=== PATIENT | male | born 1955 | race Hispanic/Latino ===

== ENCOUNTER 2018-11-07 12:09 | Outpatient (CLI) | payer MEDICARE, OTHER ==
[2018-11-07] MEDS ORDERED: ISOVUE-370 76%-LOCM 1 ML ONE (13:41)
--- NOTE | 2018-11-07 15:35 | CT ---
CT CHEST WITH IV CONTRAST 11/07/18 HISTORY: Cough, tobacco use, abnormal lung sounds. FINDINGS: No evidence of mediastinal, hilar or axillary mass or lymphadenopathy seen. There are vascular calci fications without evidence of thoracic aortic aneurysm or dissection. No pleural or pericardial effu sions are seen. No pneumothoraces, focal areas of consolidation, pulmonary nodules or masses are seen . There is scarring in the lung apices. There are mild degenerative changes in the spine. Upper abdom inal tomograms demonstrate fatty infiltration of the liver. IMPRESSION: No significant intrathoracic abnormalities are identified. POS: [facility]
== END 2018-11-07 12:10 | disposition home or self-care (01) ==
LOC: BICCT 12:09
PROVIDERS: ATTEND Family Medicine
DX: R05 Cough (principal); Z72.0 Tobacco use
CPT/HCPCS: 71260; Q9966

== ENCOUNTER 2018-11-27 13:25 | Outpatient (CLI) | payer MEDICARE, OTHER ==
--- NOTE | 2018-11-27 14:08 | RAD ---
3 views of the lumbar spine: 11/27/2018 COMPARISON: None HISTORY: Back pain and right lower extremity pain FINDINGS: Lateral neutral, flexion, and extension images are provided. There is disc space narrowing and degenerative endplate change at the L5-S1 level. There is atheroscl erotic calcification of the abdominal aorta. There is mild anterolisthesis on the neutral imaging at the L4-5 level measuring approximately 3-4 mm . Flexion imaging demonstrates anterolisthesis at L4-5 measuring in the 5 mm range in the anterolisthesis at L4-5 measures less than 2 mm on extension imaging. No acute fracture. IMPRESSION: Mild anterolisthesis of L4 on L5, most prominent upon flexion. Degenerative change at the lumbosacral junction with no acute osseous abnormality seen.
--- NOTE | 2018-11-27 15:03 | MRI ---
Lumbar spine MRI without contrast: 11/27/2018 COMPARISON: 04/03/2011 HISTORY: Back pain, right lower extremity radiculopathy with numbness and tingling of the right foot TECHNIQUE: Multiplanar multisequence MR imaging of the lumbar spine provided without contrast FINDINGS: The sagittal STIR imaging demonstrates no focal area of osseous marrow edema. There is diff use central canal stenosis on the basis of congenitally short pedicles, stable. On the basis of 5 lumbar type vertebral bodies, the conus medullaris terminates at the L1 level. T12-L1: Intervertebral disc height and signal intensity within normal limits with no significant cent ral canal or neural foraminal stenosis. L1-2: Mild bilateral facet hypertrophy. Intervertebral disc height and signal intensity within normal limits with no significant central canal or neural foraminal stenosis. L2-3: Intervertebral disc height and signal intensity within normal limits. No significant central ca nal or neural foraminal stenosis. Mild bilateral facet hypertrophy. L3-4: Mild disc bulge. No associated central canal stenosis. Mild bilateral facet hypertrophy. No sig nificant neural foraminal stenosis. L4-5: Moderate bilateral facet hypertrophy with fluid within bilateral facet joints. There is disc de siccation with mild disc bulge and mild central canal stenosis, slightly worsened when compared to the prior exam. No significant neural foraminal stenosis. L5-S1: There is disc space narrowing disc desiccation and disc bulge with a central disc protrusion a nd associated annular tear, stable. Moderate/severe stable central canal stenosis. Vacuum disc formation noted. Severe bilateral neural foraminal stenosis, slightly worsened when compared to the p rior exam. The imaged retroperitoneal structures demonstrate no acute findings. IMPRESSION: Prominent degenerative change at L5-S1, and to a lesser degree, L4-5, slightly worsened w hen compared to the 2010 exam as detailed above.
== END 2018-11-27 13:26 | disposition home or self-care (01) ==
LOC: TBSIIMAG 13:25
PROVIDERS: ATTEND Neurological Surgery
DX: M48.062 Spinal stenosis, lumbar region with neurogenic claudication (principal); M43.16 Spondylolisthesis, lumbar region; M47.817 Spondylosis without myelopathy or radiculopathy, lumbosacral region
CPT/HCPCS: 72100; 72148